=== PATIENT | male | born 1990 | race Hispanic/Latino ===

== ENCOUNTER 2018-02-24 21:37 | Emergency (ER) | payer SELFPAY ==
[2018-02-24] MEDS ORDERED: diphenhydrAMINE 25 MG CAP ONE (22:23)
[2018-02-24] MEDS ORDERED: Ibuprofen 200 MG TAB ONE (22:23)
== END 2018-02-24 23:22 | disposition home or self-care (01) ==
LOC: ERS 21:37
DX: T63.2X1A Toxic effect of venom of scorpion, accidental (unintentional), initial encounter (principal)
CPT/HCPCS: 99282